=== PATIENT | female | born 1950 | race Caucasian/White ===

== ENCOUNTER → 2022-10-31 10:34 | Outpatient (BNVA) | payer MEDICARE, SELFPAY | PROVIDERS: Family Provider Family Medicine; Visit Provider Registered Nurse Neonatal Intensive Care | DX: T14.8XXA Other injury of unspecified body region, initial encounter (principal); W57.XXXA Bitten or stung by nonvenomous insect and other nonvenomous arthropods, initial encounter | CPT/HCPCS: 86618; 86666; 86757 ==

== ENCOUNTER → 2023-04-28 10:57 | Outpatient (BNVA) | payer MEDICARE, OTHER, SELFPAY | PROVIDERS: Family Provider Family Medicine; Visit Provider Nurse Practitioner Family | DX: R39.9 Unspecified symptoms and signs involving the genitourinary system (principal) | CPT/HCPCS: 81000 ==

== ENCOUNTER 2024-03-28 21:46 | Emergency (ER) | payer MEDICARE, OTHER, SELFPAY ==
[2024-03-28 21:50] VITALS: BP 220/94; PULSE 69; RESP 18; TEMP 35.8; O2SAT 100
--- NOTE | 2024-03-28 22:01 | CTR_ITS ---
PROCEDURE INFORMATION: Exam: CT Abdomen And Pelvis Without Contrast Exam date and time: 03/28/2024 10:26 PM Age: 73 years old Clinical indication: Nausea and vomiting; Abdominal pain; Prior surgery; Surgery date: 6+ months; Surgery type: Gb. Appy; Patient HX: C/O left flank pain with n/v TECHNIQUE: Imaging protocol: Computed tomography of the abdomen and pelvis without contrast. Radiation optimization: All CT scans at this facility use at least one of these dose optimization techniques: automated exposure control; mA and/or kV adjustment per patient size (includes targeted exams where dose is matched to clinical indication); or iterative reconstruction. COMPARISON: No relevant prior studies available. RADIATION DOSE METRICS: Total DLP (mGy-cm): 534.7 FINDINGS: Liver: Hepatic granuloma. Gallbladder and biliary ducts: Cholecystectomy. Pancreas: Unremarkable. Spleen: Splenic granulomas. Adrenal glands: Unremarkable. Kidneys and ureters: Left-sided nonobstructive calcified calyceal renal stone. 4 mm calcified obstructing stone in the left mid ureter with grade 2 left-sided hydronephrosis. Stomach and bowel: Unremarkable. No mechanical obstruction. No mucosal thickening. Appendix: Appendix not definitely seen. No right lower quadrant inflammation identified. Intraperitoneal space: No free air or free fluid. Vasculature: Moderate atherosclerotic changes of the aorta and its major branches. Lymph nodes: Unremarkable. Urinary bladder: Unremarkable. Reproductive: Unremarkable. Bones/joints: Multilevel spondylosis. Soft tissues: Unremarkable. CT/CT kidney stone [id number] IMPRESSION: 4 mm calcified obstructing stone in the left mid ureter with grade 2 left-sided hydronephrosis.
[2024-03-28] MEDS: sodium chloride 0.9% 500 ML IV (22:15)
[2024-03-28 22:17] VITALS: BP 199/76; PULSE 58; RESP 16; O2SAT 98
[2024-03-28 22:19] LABS: Basophils # 0.1 10^3/uL (0.0-0.1); Basophils % 0.6 %; Eosinophils # 0.1 10^3/uL (0.0-0.8); Eosinophils % 0.5 %; Lymphocytes # 1.6 10^3/uL (0.8-4.8); Lymphocytes % 16.4 %; Mean Corpuscular HGB Conc 33.7 g/dL (30-55); Mean Corpuscular Hemoglobin 30.5 pg (27-33); Mean Corpuscular Volume 90.6 fl (85-98); Mean Platelet Volume 10.5 fL (7.4-10.4); Monocytes # 0.6 10^3/uL (0.2-0.9); Monocytes % 6.1 %; Neutrophils # 7.61 10^3/uL (1.8-7.7); Neutrophils % 76.1 %; Nucleated Red Blood Cells % 0 %; Platelet Count 205 10^3/cmm (157-399); Red Blood Count 5.08 10^6/uL (3.85-5.65); Red Cell Distribution Width 12.5 % (12.1-15.1)
[2024-03-28 22:42] LABS: Alanine Aminotransferase 15 U/L (0-33); Albumin Level 4.4 g/dL (3.5-5.2); Alkaline Phosphatase 78 U/L (35-105); Aspartate Amino Transferase 20 U/L (0-32); Blood Urea Nitrogen 20 mg/dL (8-23); Calcium 9.6 mg/dL (8.5-10.5); Carbon Dioxide 27 mmol/L (22-29); Chloride 102 mmol/L (98-107); Creatinine Clr Calc Pharmacy 41.6852; Globulin 3.2 g/dL (1.3-4.6); Glucose 131 mg/dL (65-115); Lipase 38 U/L (13-60); Osmolality Calculated 296 mOsm/kg (285-295); Sodium 141 mmol/L (136-145); Total Bilirubin 0.5 mg/dL (0.15-1.2); Total Protein 7.6 g/dL (6.6-8.7)
[2024-03-28] MEDS: ketorolac 30 mg/mL INJ IVP (22:52)
[2024-03-28] MEDS: ondansetron 2 mg/ML SDV 2 mL 4 MG IVP (22:52)
[2024-03-28 23:36] VITALS: BP 159/56; PULSE 64; RESP 16; O2SAT 93
[2024-03-28 23:42] LABS: Bilirubin Urine Negative (Negative); Blood Urine 3+ (Negative); Glucose Urine UA Negative (Normal); Ketones Urine Trace (Negative); Leukocyte Esterase Urine 3+ (Negative); Nitrate Urine Negative (Negative); Protein Urine 1+ (Negative); Specific Gravity, Urine 1.018 (1.005-1.030); Urine Appearance Cloudy (CLEAR); Urine Color Yellow (Yellow)
[2024-03-28 23:47] LABS: Add Urine Microscopic? YES; Bacteria Urine None Seen /hpf; Hyaline Casts Urine 2.87 /lpf; RBC Urine >100 /hpf (0-2); Squamous Epithelial Cell Urine 0-5 /hpf (0-5); WBC Urine 21-50 /hpf (0-5)
--- NOTE | 2024-03-28 23:49 | ED_ITS ---
HPI - Abdominal Pain 2 General: Chief Complaint: Abdominal Pain Stated Complaint: flank History of Present Illness: 73-year-old female with left flank pain most of the day. She states that she had an episode of vomiting yesterday but no pain. Pain worsened today. She has been nauseated. No fever. No blood in the stool. Blood pressure is improved after pain medication. Related Data Previous Rx's Medication Instructions Recorded cefdinir 300 mg capsule 300 mg PO BID #14 caps 03/29/24 ondansetron 4 mg disintegrating 4 mg PO Q6H PRN nausea and 03/29/24 tablet vomiting #14 tabs oxycodone-acetaminophen 7.5 mg-325 1 tab PO Q6H PRN pain #10 tabs 03/29/24 mg tablet (Percocet) Allergies Allergy/AdvReac Type Severity Reaction Status Date / Time levofloxacin [From Levaquin] Allergy Unknown Verified 03/28/24 21:53 lidocaine Allergy ALGY-Hives Verified 03/28/24 21:53 Physical Exam 2 Const: COMMON NORMALS: no acute distress GENERAL APPEARANCE: cooperative; not ill appearing and not frail appearing HENMT: COMMON NORMALS: normocephalic, atraumatic and Normal external nose present HEAD & SCALP: normocephalic and atraumatic FACE & SINUS: normal facial exam and face symmetric NOSE: Normal external nose present Eye: COMMON NORMALS: Equal, round and reactive pupils present and EOMs intact bilaterally PUPIL: Yes Equal, round and reactive pupils present Neck/C-Spine: GENERAL: Yes trachea midline Chest: CHEST: Yes Symmetrical chest wall rise Resp: COMMON NORMALS: normal respiratory effort, No retractions, No use of accessory muscles and clear to auscultation bilaterally AUSCULTATION: clear to auscultation bilaterally Cardio: COMMON NORMALS: regular rate and regular rhythm RATE: regular rate RHYTHM: regular rhythm GI: COMMON NORMALS: Normal to inspection, nondistended, normoactive bowel sounds present and Soft to palpation PALPATION: Yes Soft to palpation and Yes Tenderness to palpation present (GI) Details: LLQ Extremity: COMMON NORMALS: no pedal edema Neuro: AARON COMA SCALE: document GCS findings [place] coma scale eye opening: Spontaneous Aaron coma scale verbal response: Orientated Aaron coma scale motor response: Obey commands [place] coma scale total score: 15 S ENSORY EXAM: Yes extremities (intact) Psych: COMMON NORMALS: speech normal SPEECH: Yes normal speech Skin: COMMON NORMALS: no rashes or lesions noted GENERAL SKIN EXAM: no rashes or lesions noted Course 2 Vital Signs: Vital signs: Vital Signs Temperature 96.4 F L 03/28/24 21:50 Pulse Rate 56 L 03/29/24 01:23 Respiratory Rate 16 03/29/24 01:23 Blood Pressure 160/55 03/29/24 01:23 Pulse Oximetry 97 03/29/24 01:23 Oxygen Delivery Me thod Room Air 03/29/24 00:51 MDM - Abdominal Pain Medical Decision Making Pain is improved after Toradol. CT shows a 4 mm obstructing stone in the left mid ureter. She has 3+ leukocyte esterase, 21-50 whites. White blood cell count is only 10. She is afebrile. She is feeling much better. Spoke with urology at [facility]. Patient would like to try to pass the stone on her own. Recommendations are antibiotics, pain medication, nausea medication, outpatient follow-up. Return or present there if she gets a fever, vomits, uncontrolled pain, etc. Lab Data 03/28/24 22:07 03/28/24 22:07 Labs/Radiology: Radiology Impressions Abdomen/Pelvis CT 03/28/24 22:01 IMPRESSION: 4 mm calcified obstructing stone in the left mid ureter with grade 2 left-sided hydronephrosis. Laboratory Results WBC 10.00 10^3/uL (3.29-11.43) 03/28/24 22:07 RBC 5.08 10^6/uL (3.85-5.65) 03/28/24 22:07 Hgb 15.50 g/dL (11.27-16.99) 03/28/24 22:07 Hct 46.0 % (36-47) 03/28/24 22:07 MCV 90.6 fl (85-98) 03/28/24 22:07 MCH 30.5 pg (27-33) 03/28/24 22:07 MCHC 33.7 g/dL (30-55) 03/28/24 22:07 RDW 12.5 % (12.1-15.1) 03/28/24 22:07 Plt Count 205 10^3/cmm (157-399) 03/28/24 22:07 MPV 10.5 fL (7.4-10.4) H 03/28/24 22:07 Neut % (Auto) 76.1 % 03/28/24 22:07 Lymph % (Auto) 16.4 % 03/28/24 22:07 [place] % (Auto) 6.1 % 03/28/24 22:07 Eos % (Auto) 0.5 % 03/28/24 22:07 Baso % (Auto) 0.6 % 03/28/24 22:07 Neut # (Auto) 7.61 10^3/uL (1.8-7.7) 03/28/24 22:07 Lymph # (Auto) 1.6 10^3/uL (0.8-4.8) 03/28/24 22:07 [place] # (Auto) 0.6 10^3/uL (0.2-0.9) 03/28/24 22:07 Eos # (Auto) 0.1 10^3/uL (0.0-0.8) 03/28/24 22:07 Baso # (Auto) 0.1 10^3/uL (0.0-0.1) 03/28/24 22:07 Nucleated RBC % (auto) 0 % 03/28/24 22:07 Nucleated RBCs # 0.0 /100WBC 03/28/24 22:07 Sodium 141 mmol/L (136-145) 03/28/24 22:07 Potassium 4.0 mmol/L (3.5-5.1) 03/28/24 22:07 Chloride 102 mmol/L (98-107) 03/28/24 22:07 Carbon Dioxide 27 mmol/L (22-29) 03/28/24 22:07 Anion Gap 16.0 (5-19) 03/28/24 22:07 BUN 20 mg/dL (8-23) 03/28/24 22:07 Creatinine 1.0 mg/dL (0.5-0.9) H 03/28/24 22:07 GFR Calculation Not Reportable 03/28/24 22:07 Glucose 131 mg/dL (65-115) H 03/28/24 22:07 Calculated Osmolality 296 mOsm/kg (285-295) H 03/28/24 22:07 Calcium 9.6 mg/dL (8.5-10.5) 03/28/24 22:07 Total Bilirubin 0.5 mg/dL (0.15-1.2) 03/28/24 22:07 AST 20 U/L (0-32) 03/28/24 22:07 ALT 15 U/L (0-33) 03/28/24 22:07 Alkaline Phosphatase 78 U/L (35-105) 03/28/24 22:07 C-Reactive Protein 3.0 mg/L (0.0-4.9) 03/28/24 22:07 Total Protein 7.6 g/dL (6.6-8.7) 03/28/24 22:07 Albumin 4.4 g/dL (3.5-5.2) 03/28/24 22:07 Globulin 3.2 g/dL (1.3-4.6) 03/28/24 22:07 Lipase 38 U/L (13-60) 03/28/24 22:07 Urine Color Yellow (Yellow) 03/28/24 23:37 Urine Appearance Cloudy (CLEAR) A 03/28/24 23:37 Urine pH 8.0 (5-7) A 03/28/24 23:37 Ur Specific [place] 1.018 (1.005-1.030) 03/28/24 23:37 Urine Protein 1+ (Negative) A 03/28/24 23:37 Urine Glucose (UA) Negative (Normal) 03/28/24 23:37 Urine Ketones Trace (Negative) 03/28/24 23:37 Urine Blood 3+ (Negative) A 03/28/24 23:37 Urine Nitrate Negative (Negative) 03/28/24 23:37 Urine Bilirubin Negative (Negative) 03/28/24 23:37 Urine Urobilinogen 1.0 mg/dL (Negative) 03/28/24 23:37 Ur Leukocyte Esterase 3+ (Negative) A 03/28/24 23:37 Urine RBC >100 /hpf (0-2) H 03/28/24 23:37 Urine WBC 21-50 /hpf (0-5) H 03/28/24 23:37 Ur Squamous Epith Cells 0-5 /hpf (0-5) 03/28/24 23:37 Amorphous Sediment Not Reportable 03/28/24 23:37 Urine Bacteria None seen /hpf (NONE) 03/28/24 23:37 Hyaline Casts 2.87 /lpf 03/28/24 23:37 All radiology interpretation(s) finalized by discharge Discharge Plan Discharge Patient Disposition: Home Clinical Impression: Ureterolithiasis, Acute UTI Condition: Stable Prescriptions: New oxycodone-acetaminophen [Percocet] 7.5-325 mg tablet 1 tab PO Q6H PRN (Reason: pain) Qty: 10 0RF ondansetron 4 mg tablet,disintegrating 4 mg PO Q6H PRN (Reason: nausea and vomiting) Qty: 14 0RF cefdinir 300 mg capsule 300 mg PO BID Qty: 14 0RF Discharge Orders: Discharge ED (Routine); Ordered 03/29/24 Ordered By: Eduardo Agudelo Referrals: García Chowdary MD [Family Provider] - Hang Jones MD [Referring] - Patient Instructions: Kidney Stones (ED), Urinary Tract Infection in Women (ED), Opioid Safety, Pain Management Activity Restrictions/Additional Instructions: Return for fever greater than 100, vomiting liquids or medications, worsening pain despite treatment, other concerning symptoms. Call urology at the number listed above in the morning, for a follow-up appointment. Coding Level of Care Code ED Mental Health Advanced Practice Nurse for Rhett Mackey
[2024-03-28 23:56] LABS: Add Urine Culture? Yes
[2024-03-29] MEDS: cefTRIAXone 1,000 mg SDV 1000 MG IVP (00:43)
[2024-03-29 00:51] VITALS: BP 157/62; PULSE 60; RESP 16; O2SAT 95
[2024-03-29] MEDS: oxyCODONE-APAP 5-325 mg Tablet 2 TAB PO (01:13)
--- NOTE | 2024-03-29 01:13 | PC.NURSE ---
Pt sent home with 2tabs Oxydcodone 5/ per Dr Agudelo's orders.
[2024-03-29 01:23] VITALS: BP 160/55; PULSE 56; RESP 16; O2SAT 97
== END 2024-03-29 01:24 | disposition home or self-care (01) ==
PROVIDERS: Emergency Provider Emergency Medicine; Family Provider Family Medicine
DX: N20.1 Calculus of ureter (principal); N39.0 Urinary tract infection, site not specified
CPT/HCPCS: 36415; 74176; 80053; 81001; 83690; 85025; 86140; 87086; 96361; 96374; 96375; 99285; J0696; J1885; J2405; J7040

== ENCOUNTER 2025-01-24 13:30 | Outpatient (CLI) | payer MEDICARE, OTHER, SELFPAY ==
--- NOTE | 2025-01-24 13:36 | XR_ITS ---
WS: [id number] XR ribs LT mn 3V w CXR1V [id number] REASON FOR EXAM: Fall with popping and increased pain and SOB FINDINGS: No acute left rib fracture identified. No acute abnormality within the left hemithorax. XR/XR ribs LT mn 3V w CXR1V [id number] IMPRESSION: No acute abnormality.
== END 2025-01-24 13:31 | disposition home or self-care (01) ==
PROVIDERS: Family Provider Family Medicine; Visit Provider Family Medicine Adult Medicine
DX: R07.81 Pleurodynia (principal); R06.02 Shortness of breath
CPT/HCPCS: 71101